=== PATIENT | male | born 1980 | race Caucasian/White ===

== ENCOUNTER 2017-05-27 13:21 | Emergency (ER) | payer SELFPAY ==
[2017-05-27 13:48] VITALS: BP 107/68
[2017-05-27] MEDS ORDERED: CIPROFLOXACIN HCL/DEXAMETH OTIC DROP 7.5 ML AS ONE (14:20)
--- NOTE | 2017-05-27 14:26 | ER Document Report ---
HPI - HPI Pain Level: 3 Notes: Patient is a 37-year-old male with no significant past medical history who presents to the ED complaining of right ear pain 3 days. Patient states that his ear feels like it is swollen. He has not had any other recent illness. He is eating and drinking without difficulties. The pain does not radiate. He has been using some [id number] meds with minimal relief. No other concerns or complaints at this time. Denies any headache, fever, head injury, neck pain, URI, sore throat, chest pain, palpitations, syncope, cough, shortness of breath, wheeze, dyspnea, abdominal pain, nausea/vomiting/diarrhea, urinary retention, dysuria, hematuria, or rash. - ROS Systems Reviewed and Negative: Yes All other systems reviewed and negative - EENT EENT: REPORTS: Ear Pain - R Past Medical History - Social History Smoking Status: Current Every Day Smoker Chew tobacco use (# tins/day): No Frequency of alcohol use: Rare Drug Abuse: Marijuana Family History: Reviewed & Not Pertinent Patient has suicidal ideation: No Patient has homicidal ideation: No Renal/ Medical History: Denies: Hx Peritoneal Dialysis Past Surgical History: Reports: Hx Appendectomy, Hx Orthopedic Surgery - B ankle Vertical Provider Document - CONSTITUTIONAL Agree With Documented VS: Yes Notes: PHYSICAL EXAMINATION: GENERAL: Well-appearing, well-nourished and in no acute distress. A&Ox4. Answers questions appropriately. Moves comfortably w/o notable distress HEAD: Atraumatic, normocephalic. EYES: Pupils equal round and reactive to light, extraocular movements intact, sclera anicteric, conjunctiva are normal. ENT: Lt EAC/TM wnl. Rt EAC swollen and tender. No mastoid tenderness. Rt TM unable to be visualized. Nares patent and without discharge. oropharynx mild erythema without exudates. No tonsilar hypertrophy without erythema or exudate. No palatine shift. Uvula midline. No tongue protrusion. No drooling , hoarseness, or airway compromise. Moist mucous membranes. No sinus tenderness. NECK: Normal range of motion, supple without lymphadenopathy. No rigidity/ meningismus. LUNGS: Breath sounds clear to auscultation bilaterally and equal. No wheezes rales or rhonchi. No retractions HEART: Regular rate and rhythm without murmurs, rubs, gallops NEUROLOGICAL: Normal speech, normal gait. Normal sensory, motor exams PSYCH: Normal mood, normal affect. SKIN: Warm, Dry, normal turgor, no rashes or lesions noted. Course - Re-evaluation Re-evalutation: 05/27/17 14:40 Patient is an afebrile, well-hydrated, 37-year-old male who presents to the ED with acute otitis externa of the right ear. Vitals are acceptable. PE is otherwise unremarkable. Ear wick was placed today with Ciprodex. Patient tolerated procedure well without any comp locations. No other labs or imaging warranted at this time based on H&P. Low suspicion for any sepsis, meningitis, severe dehydration, respiratory compromise, mastoiditis, or other systemic emergent condition at this time. Patient is aware that condition can change from initial presentation and he needs to monitor symptoms closely and seek medical attention with any acute changes. Conservative measures otherwise for symptoms. Recheck with your PCM in 3-5 days. Consider consult ENT. Return to the ED with any worsening/concerning symptoms otherwise as reviewed discharge. Patient is in agreement. - Vital Signs Vital signs: Temp Pulse Resp BP Pulse Ox 98.3 F 94 18 107/68 100 05/27/17 13:46 05/27/17 13:46 05/27/17 13:46 05/27/17 13:46 05/27/17 13:46 Procedures - Additional Procedures ear wick placement Time performed: 14:40 Notes: 05/27/17 14:40 Ear wick was placed successfully without any complications. Patient tolerated procedure well without any complications. Discharge - Discharge Clinical Impression: Acute otitis externa of right ear Qualifiers: Otitis externa type: unspecified type Qualified Code(s): H60.501 - Unspecified acute noninfective otitis externa, right ear Condition: Stable Disposition: HOME, SELF-CARE Instructions: Using Ear Drops with a Wick ([facility]), Otitis Externa ([facility]) Additional Instructions: Keep the ears clean avoid Q-tips Tylenol/ibuprofen as needed Recheck with your PCM in 3-5 days Consider consult with ENT Return to the ED with any worsening symptoms and/or development of fever, headache, chest pain, palpitations, syncope, shortness of breath, trouble breathing, abdominal pain, n/v/d, or other worsening symptoms that are concerning to you. Prescriptions: Ciprofloxacin HCl/Dexameth [Ciprodex Otic Suspension 7.5 ml Bottle] 4 drop OT BID #1 bottle Referrals: FRANK JAIN DO [ASSOCIATE] - Follow up as needed
== END 2017-05-27 14:48 | disposition home or self-care (01) ==
LOC: ER 13:21
DX: H60.501 Unspecified acute noninfective otitis externa, right ear (principal); F17.200 Nicotine dependence, unspecified, uncomplicated
CPT/HCPCS: 99282; J3490

== ENCOUNTER 2018-08-27 16:17 | Inpatient (IN) | payer SELFPAY ==
--- NOTE | 2018-08-27 16:21 | ER Document Report ---
ED Medical Screen (RME) - General Chief Complaint: S/S of Possible Stroke Stated Complaint: POSSIBLE STROKE Time Seen by Provider: 08/27/18 16:19 Mode of Arrival: Wheelchair Information source: Patient Notes: Patient presents emergency department with chief complaint of sudden onset slurred speech and left arm numbness and weakness that began 30 minutes prior to arrival. Stroke alert activated. Orders placed from lockstitch front maker after quick visual of patient, more thorough assessment will be done at the bedside. I have greeted and performed a rapid initial assessment of this patient. A co mprehensive ED assessment and evaluation of the patient, analysis of test results and completion of the medical decision making process will be conducted by additional ED providers. I have specifically instructed the patient or family members with the patient to immediately return to any nursing staff should anything change in the patient's condition or with their chief complaint. This medical record was dictated with voice recognizing software. There may be grammatical, syntax errors that are unintended. - Related Data Allergies/Adverse Reactions: bee venom protein (honey bee) Allergy (Verified 05/27/17 14:08) naproxen [From Aleve] Allergy (Verified 05/27/17 14:08) Past Medical History Renal/ Medical History: Denies: Hx Peritoneal Dialysis Past Surgical History: Reports: Hx Appendectomy, Hx Orthopedic Surgery - B ankle
--- NOTE | 2018-08-27 16:35 | RADIOLOGY REPORT (SQ) ---
EXAM DESCRIPTION: CT HEAD WITHOUT COMPLETED DATE/TIME: 08/27/2018 4:28 pm REASON FOR STUDY: slurred speech COMPARISON: None. TECHNIQUE: Axial images acquired through the brain without intravenous contrast. Images reviewed wi th bone, brain and subdural windows. Additional sagittal and coronal reconstructions were generated. Images stored on PACS. All CT scanners at this facility use dose modulation, iterative reconstruction, and/or weight based d osing when appropriate to reduce radiation dose to as low as reasonably achievable (ALARA). [facility]: Dose Right [facility]: CareDose [facility]: Dose Right [facility]: Teradose 4D [facility]: [email or web address] RADIATION DOSE: CT Rad equipment meets quality standard of care and radiation dose reduction techniq ues were employed. CTDIvol: 53.2 mGy. DLP: 1124 mGy-cm. mGy. LIMITATIONS: None. FINDINGS: VENTRICLES: Normal size and contour. CEREBRUM: No masses. No hemorrhage. No midline shift. No evidence for acute infarction. Normal gra y/white matter differentiation. No areas of low density in the white matter. CEREBELLUM: No masses. No hemorrhage. No alteration of density. No evidence for acute infarction. EXTRAAXIAL SPACES: No fluid collections. No masses. ORBITS AND GLOBE: No intra- or extraconal masses. Normal contour of globe without masses. CALVARIUM: No fracture. PARANASAL SINUSES: No fluid or mucosal thickening. SOFT TISSUES: No mass or hematoma. OTHER: No other significant finding. IMPRESSION: NORMAL BRAIN CT WITHOUT CONTRAST. EVIDENCE OF ACUTE STROKE: NO. COMMENT: The findings were sent to the Radiology Results Communication Center at 16:30 on 08/27/2018 to be communicated to a licensed caregiver. Quality ID # [id number]: Final reports with documentation of one or more dose reduction techniques (e.g., Au tomated exposure control, adjustment of the mA and/or kV according to patient size, use of iterative reconstruction technique) TECHNICAL DOCUMENTATION: JOB ID: [id number] [employer]- All Rights Reserved Reading location - IP/workstation name: [email or web address]
--- NOTE | 2018-08-27 16:36 | RADIOLOGY REPORT (SQ) ---
EXAM DESCRIPTION: CHEST SINGLE VIEW COMPLETED DATE/TIME: 08/27/2018 4:28 pm REASON FOR STUDY: slurred speech COMPARISON: None. EXAM PARAMETERS: NUMBER OF VIEWS: One view. TECHNIQUE: Single frontal radiographic view of the chest acquired. RADIATION DOSE: NA LIMITATIONS: None. FINDINGS: LUNGS AND PLEURA: No opacities, masses or pneumothorax. No pleural effusion. MEDIASTINUM AND HILAR STRUCTURES: No masses. Contour normal. HEART AND VASCULAR STRUCTURES: Heart normal in size. Normal vasculature. BONES: No acute findings. HARDWARE: None in the chest. OTHER: No other significant finding. IMPRESSION: NO ACUTE RADIOGRAPHIC FINDING IN THE CHEST. TECHNICAL DOCUMENTATION: JOB ID: [id number] [employer]- All Rights Reserved Reading location - IP/workstation name: [email or web address]
[2018-08-27 16:48] LABS: ABSOLUTE BASOPHILS # (AUTO) 0.1 10^3/uL (0.0-0.2); ABSOLUTE EOSINOPHILS # (AUTO) 0.2 10^3/uL (0.0-0.6); ABSOLUTE LYMPHOCYTES (AUTO) 2.5 10^3/uL (0.5-4.7); ABSOLUTE MONOCYTES (AUTO) 0.6 10^3/uL (0.1-1.4); ABSOLUTE NEUT (AUTO) 3.6 10^3/uL (1.7-8.2); BASOPHILS % (AUTO) 1.2 % (0-2); EOSINOPHILS % (AUTO) 2.5 % (0-6); HEMATOCRIT 33.7 % (37.9-51.0); HEMOGLOBIN 11.6 g/dL (13.5-17.0); LYMPHOCYTES % (AUTO) 35.7 % (13-45); MEAN CORPUSCULAR HEMOGLOBIN 31.6 pg (27.0-33.4); MEAN CORPUSCULAR HGB CONC 34.4 g/dL (32.0-36.0); MEAN CORPUSCULAR VOLUME 92 fl (80-97); MONOCYTES % (AUTO) 8.5 % (3-13); PLATELET COUNT 205 10^3/uL (150-450); RED BLOOD COUNT 3.67 10^6/uL (4.35-5.55); RED CELL DISTRIBUTION WIDTH 15.6 % (11.5-14.0); SEGMENTED NEUTROPHILS % (AUTO) 52.1 % (42-78); TOTAL CELLS COUNTED % (AUTO) 100 %; WHITE BLOOD COUNT 6.9 10^3/uL (4.0-10.5)
[2018-08-27 16:57] LABS: INTERNATIONAL RATION (INR) 0.94; PROTHROMBIN TIME 12.6 SEC (11.4-15.4)
[2018-08-27 16:58] LABS: PARTIAL THROMBOPLASTIN TIME 36.1 SEC (23.5-35.8)
[2018-08-27 17:08] LABS: ALANINE AMINOTRANSFERASE 88 U/L (21-72); ALBUMIN 5.1 g/dL (3.5-5.0); ALKALINE PHOSPHATASE 75 U/L (38-126); ANION GAP 13 (5-19); ASPARTATE AMINO TRANSFERASE 238 U/L (17-59); BILIRUBIN,DIRECT 0.3 mg/dL (0.0-0.4); BILIRUBIN,TOTAL 0.4 mg/dL (0.2-1.3); BLOOD UREA NITROGEN 18 mg/dL (7-20); CALCIUM 9.8 mg/dL (8.4-10.2); CARBON DIOXIDE 27 mmol/L (22-30); CHLORIDE 101 mmol/L (98-107); GLUCOSE 94 mg/dL (75-110); POTASSIUM 3.6 mmol/L (3.6-5.0); SODIUM 140.9 mmol/L (137-145); TOTAL PROTEIN 8.5 g/dL (6.3-8.2)
--- NOTE | 2018-08-27 17:16 | ER Document Report ---
ED General - General Chief Complaint: S/S of Possible Stroke Stated Complaint: POSSIBLE STROKE Time Seen by Provider: 08/27/18 16:19 Mode of Arrival: Wheelchair Information source: Patient, Relative Notes: 38-year-old male with hypertension (noncompliant with medication) hypothyroidism (noncompliant with medication) presents with complaint of left hand tingling and numbness that started just prior to arrival while he was driving. Patient states that he had a sudden onset of tingling that was located in his wrist and extended to his fingers. He denies any left arm weakness, slurred speech, difficulty with ambulation. Patient states that he did experience an episode of dizziness along with the hand tingling while driving which resolved prior to exam. Patient is a pack per day smoker, occasionally drinks and denies any illicit drug use. - HPI Onset: Just prior to arrival Onset/Duration: Sudden, Gone Quality of pain: No pain Severity: None Pain Level: Denies Associated symptoms: Other - Paresthesia Exacerbated by: Denies Relieved by: Denies Similar symptoms previously: No Recently seen / treated by doctor: No - Related Data Allergies/Adverse Reactions: bee venom protein (honey bee) Allergy (Verified 08/27/18 16:45) naproxen [From Aleve] Allergy (Verified 08/27/18 16:45) Past Medical History - General Information source: Patient - Social History Smoking Status: Current Every Day Smoker Cigarette use (# per day): Yes - 20 Chew tobacco use (# tins/day): No Smoking Education Provided: Yes - Smoking cessation counseling was provided for 4 minutes at the bedside Frequency of alcohol use: None Drug Abuse: None Lives with: Family Family History: Reviewed & Not Pertinent Patient has suicidal ideation: No Patient has homicidal ideation: No - Past Medical History Cardiac Medical History: Reports: Hx Hypertension Renal/ Medical History: Denies: Hx Peritoneal Dialysis Past Surgical History: Reports: Hx Appendectomy, Hx Orthopedic Surgery - B ankle Review of Systems - Review of Systems Notes: REVIEW OF SYSTEMS: CONSTITUTIONAL : Denies fever, chills, or sweats. Denies recent illness. Denies weight loss, recent hospitalizations. EENT: Denies visual changes, eye pain. Denies sore throat, oral lesions, difficulty swallowing. CARDIOVASCULAR: Denies chest pain. Denies palpitations. Denies lower extremity edema. RESPIRATORY: Denies cough. Denies shortness of breath, wheezing. GASTROINTESTINAL: Denies abdominal pain or distention. Denies nausea, vomiting, or diarrhea. Denies blood in vomitus, stools, or per rectum. Denies black, tarry stools. Denies constipation. GENITOURINARY: Denies difficulty urinating, painful urination, frequency, blood in urine, testicular pain or penile discharge. MUSCULOSKELETAL: Denies back or neck pain or stiffness. Denies joint pain or swelling. SKIN: Denies rash, lesions or sores. HEMATOLOGIC : Denies easy bruising or bleeding. LYMPHATIC: Denies swollen glands. NEUROLOGICAL: Denies confusion or altered mental status. Denies loss of consciousness. + dizziness or lightheadedness. Denies headache. Denies weakness or paralysis. Denies problems difficulty with ambulation, slurred speech. Denies sensory loss, Denies seizures. PSYCHIATRIC: Denies anxiety or stress. Denies depression, suicidal ideation, or Physical Exam - Vital signs Vitals: Pulse Resp BP Pulse Ox 84 20 149/95 H 99 08/27/18 16:32 08/27/18 16:32 08/27/18 16:32 08/27/18 16:32 - Notes Notes: PHYSICAL EXAMINATION: GENERAL: Well-appearing, well-nourished and in no acute distress. HEAD: Atraumatic, normocephalic. EYES: Pupils equal round and reactive to light, extraocular movements intact, sclera anicteric, conjunctiva are normal. ENT: Nares patent, oropharynx clear without exudates. Moist mucous membranes. NECK: Normal range of motion, supple without lymphadenopathy LUNGS: Breath sounds clear to auscultation bilaterally and equal. No wheezes rales or rhonchi. HEART: Regular rate and rhythm without murmurs ABDOMEN: Soft, nontender, nondistended abdomen. No guarding, no rebound. No masses appreciated. Musculoskeletal: Normal range of motion, no pitting or edema. No cyanosis. NEUROLOGICAL: Mental status; alert and oriented x3. Cranial nerves II through XII intact. Sensation intact to sharp/dull differentiation in all extremities. Motor; normal tone. No abnormal movements appreciated. No pronator drift. Strength tested and 5/5 in bilateral wrist flexion/extension, elbow flexion/extension, shoulder abduction, straight leg raise, knee flexion/extension, ankle dorsiflexion/plantar flexion. Patient ambulates with a steady gait. Coordination; no ataxia. Finger to nose and heel to mary testing intact bilaterally.Reflexes; brachial radialis, biceps, and patellar reflexes within normal limits and symmetric bilaterally. Babinski with downgoing toes bilaterally. PSYCH: Normal mood, normal affect. SKIN: Warm, Dry, normal turgor, no rashes or lesions noted. Course - Re-evaluation Re-evalutation: 08/27/18 19:23 Laboratory 08/27/18 08/27/18 08/27/18 14:35 14:35 14:35 WBC 6.9 RBC 3.67 L Hgb 11.6 L Hct 33.7 L MCV 92 MCH 31.6 MCHC 34.4 RDW 15.6 H Plt Count 205 Seg Neutrophils % 52.1 Lymphocytes % 35.7 Monocytes % 8.5 Eosinophils % 2.5 Basophils % 1.2 Absolute Neutrophils 3.6 Absolute Lymphocytes 2.5 Absolute Monocytes 0.6 Absolute Eosinophils 0.2 Absolute Basophils 0.1 PT 12.6 INR 0.94 APTT 36.1 H Sodium 140.9 Potassium 3.6 Chloride 101 Carbon Dioxide 27 Anion Gap 13 BUN 18 Creatinine 1.34 H Est GFR ( Amer) > 60 Est GFR (Non-Af Amer) 59 L Glucose 94 Calcium 9.8 Total Bilirubin 0.4 Direct Bilirubin 0.3 Neonat Total Bilirubin Not Reportable Neonat Direct Bilirubin Not Reportable Neonat Indirect Bili Not Reportable AST 238 H ALT 88 H Alkaline Phosphatase 75 Creatine Kinase 8668 H CK-MB (CK-2) Troponin I Total Protein 8.5 H Albumin 5.1 H TSH Free T4 08/27/18 08/27/18 14:35 14:35 WBC RBC Hgb Hct MCV MCH MCHC RDW Plt Count Seg Neutrophils % Lymphocytes % Monocytes % Eosinophils % Basophils % Absolute Neutrophils Absolute Lymphocytes Absolute Monocytes Absolute Eosinophils Absolute Basophils PT INR APTT Sodium Potassium Chloride Carbon Dioxide Anion Gap BUN Creatinine Est GFR ( Amer) Est GFR (Non-Af Amer) Glucose Calcium Total Bilirubin Direct Bilirubin Neonat Total Bilirubin Neonat Direct Bilirubin Neonat Indirect Bili AST ALT Alkaline Phosphatase Creatine Kinase CK-MB (CK-2) 22.10 H Troponin I < 0.012 Total Protein Albumin TSH 176.00 H Free T4 < 0.07 L Chest X-Ray 08/27/18 16:20 IMPRESSION: NO ACUTE RADIOGRAPHIC FINDING IN THE CHEST. Head CT 08/27/18 16:20 IMPRESSION: NORMAL BRAIN CT WITHOUT CONTRAST. EVIDENCE OF ACUTE STROKE: NO. Head CTA 08/27/18 16:48 IMPRESSION: NO CTA EVIDENCE OF STENOSIS OR ANEURYSM OF THE [place]. Neck CTA 08/27/18 16:48 IMPRESSION: There is no stenosis or significant atherosclerosis of the extracranial carotid or vertebral arteries. The internal carotid arteries are tortuous. Temp Pulse Resp BP Pulse Ox 98.0 F 84 16 122/77 92 08/27/18 16:44 08/27/18 16:32 08/27/18 19:02 08/27/18 19:02 08/27/18 19:02 08/27/18 20:40 38-year-old male presented with concern for stroke after experiencing numbness in his left wrist and hand. Upon arrival NIH was performed and 0. Vital signs reviewed and within normal limits. Patient is alert, awake and has no current complaints except for mild paresthesia of the left hand. He denies any weakness, slurred speech, headache. CBC is without leukocytosis and does show mild anemia. CMP does show elevation in the patient's liver enzymes and a mil dly elevated creatinine of 1.34. Unexpected findings were a CK level of almost 9000. Patient also has significant hypothyroidism. He does admit to being noncompliant with his medications. He has remained stable throughout his ED course. Patient was accepted by the hospitalist for observation on telemetry. - Vital Signs Vital signs: Temp Pulse Resp BP Pulse Ox 98.0 F 84 16 122/77 92 08/27/18 16:44 08/27/18 16:32 08/27/18 19:02 08/27/18 19:02 08/27/18 19:02 - Laboratory Result Diagrams: 08/27/18 14:35 08/27/18 14:35 Laboratory results interpreted by me: 08/27/18 08/27/18 08/27/18 14:35 14:35 14:35 RBC 3.67 L Hgb 11.6 L Hct 33.7 L RDW 15.6 H APTT 36.1 H Creatinine 1.34 H Est GFR (Non-Af Amer) 59 L AST 238 H ALT 88 H Creatine Kinase 8668 H CK-MB (CK-2) Total Protein 8.5 H Albumin 5.1 H TSH Free T4 08/27/18 08/27/18 14:35 14:35 RBC Hgb Hct RDW APTT Creatinine Est GFR (Non-Af Amer) AST ALT Creatine Kinase CK-MB (CK-2) 22.10 H Total Protein Albumin TSH 176.00 H Free T4 < 0.07 L - Diagnostic Test Radiology reviewed: Image reviewed, Reports reviewed - EKG Interpretation by Me EKG shows normal: Sinus rhythm Rate: Normal Rhythm: NSR When compared to previous EKG there are: Previous EKG unavailable Discharge - Discharge Clinical Impression: Paresthesias in left hand, Tobacco dependence, Elevated liver enzymes Rhabdomyolysis Qualifiers: Rhabdomyolysis type: non-traumatic Qualified Code(s): M62.82 - Rhabdomyolysis Hypothyroidism Qualifiers: Hypothyroidism type: unspecified Qualified Code(s): E03.9 - Hypothyroidism, unspecified Condition: Stable Disposition: ADMITTED OBSERVATION Admitting Provider: Kathryn (Hospitalist) Unit Admitted: Telemetry ED NIH Stroke Scale - NIH Stroke Scale *: 1. NIH scale should be completed with appropriate accompanying assessment tools. *: 2. The NIH should reflect what the patient is capable of doing and should not be coached by the clinician. 1a. Level of Consciousness: 0=Alert;keenly responsive -: 1=Drowsy -: 2=Obtunded -: 3=Coma/unresponsive or reflex to noxious stimuli. 1a. Responses: 0 1b. Orientation Questions: a. What month is it? -: b. How old are you? -: 0=Answers both questions correctly. -: 1=Answers one question correctly or patient is intubated or has orotracheal trauma. -: 2=Answers neither question correctly. 1b. Responses: 0 1c. Response to commands: a. Open and close eyes? -: b. Stand Grinder and release hand? -: Credit is given despite weakness. Demonstration of task is permitted. Substitute command if hands cannot be used. -: 0=Performs both tasks correctly -: 1=Performs one task correctly -: 2=Performs neither task correctly 1c. Responses: 0 2. Gaze: Establish eye contact and instruct patient to "Follow my finger" -: 0=Normal -: 1=Partial gaze palsy. Gaze is abnormal in one or both eyes, but where forced deviation or total gaze paresis is not present. -: 2=Forced deviation or total gaze paresis. 2. Responses: 0 3. Visual Martins: Sees fingers in all four quadrants. -: 0=No visual loss. -: 1=Partial hemianopsia. -: 2=Complete hemianopsia. -: 3=Bilateral hemianopsia (including Cortical blindness) 3. Responses: 0 4. Facial Movement: Instruct patient to: -: a. Show me your teeth -: b. Raise your eyebrows -: c. Close your eyes -: d. Smile -: 0=Normal symmetrical movement -: 1=Minor paralysis (flattened nasolabial fold, asymmetry on smiling). -: 2=Partial paralysis (total or near total paralysis of lower face). -: 3=Complete paralysis of upper and lower face 4. Responses: 0 5. Motor functions (left arm): Alternate sides and extend each arm with palms d own (90 degrees if sitting or 45 degrees for supine). -: 0=No drift;limb holds for full 10 seconds. -: 1=Drift; limb holds but drifts down before full 10 seconds, but does not hit bed. -: 2=Some effort against gravity; limb cannot get to or maintain position. -: 3=No effort against gravity; limb falls. -: 4=No movement. -: UN=Amputation, joint fusion, explain in comments. 5. Responses (left arm): 0 5. Motor Functions (right arm): Alternate sides and extend each arm with palms down (90 degrees if sitting or 45 degrees for supine). -: 0=No drift;limb holds for full 10 seconds. -: 1=Drift; limb holds but drifts down before full 10 seconds, but does not hit bed. -: 2=Some effort against gravity; limb cannot get to or maintain position. -: 3=No effort against gravity; limb falls. -: 4=No movement. -: UN=Amputation, joint fusion, explain in comments. 5. Responses (right arm): 0 6. Motor Functions (left leg): With patient lying supine, alternate sides and extend each leg (30 degrees always while supine). -: 0=No drift, leg holds position for full 5 seconds -: 1=Drift; leg falls before full 5 seconds but does not hit bed. -: 2=Some effort against gravity, leg falls to bed but some effort against gravity. -: 3=No effort against gravity, leg falls to bed immediately. -: 4=No movement. -: UN=Amputation, joint fusion; explain in comments. 6. Responses (left leg): 0 6. Motor Functions (right leg): With patient lying supine, alternate sides and extend each leg (30 degrees always while supine). -: 0=No drift, leg holds position for full 5 seconds -: 1=Drift; leg falls before full 5 seconds but does not hit bed. -: 2=Some effort against gravity, leg falls to bed but some effort against gravity. -: 3=No effort against gravity, leg falls to bed immediately. -: 4=No movement. -: UN=Amputation, joint fusion; explain in comments. 6. Responses (right leg): 0 7. Limb Ataxia: With eyes open instruct patient to: -: a. "Touch your finger to your nose". -: b. "Touch your heel to your mary" -: 0=Absent -: 1=Present in one limb. -: 2=Present in two limbs. -: UN=Amputation or joint fusion; explain in comments. 7. Responses: 0 8. Sensory: Test sensation using pinprick or noxious stimuli. Test as many body parts as possible. -: 0=Normal;no sensory loss -: 1=Mile to moderate sensory loss (patient feels pin prick but is less sharp on affected side). -: 2=Severe or total sensory loss. 8. Responses: 0 9. Best Language: Instruct patient to: -: a. "Describe what you see in this picture." -: b. "Name the items in this picture." -: c. "Read these sentences." -: 0=No aphasia, normal -: 1=Mild to moderate aphasia. -: 2=Severe aphasia -: 3=Mute, global aphasia, no usable speech or auditory comprehension. 9. Responses: 0 10. Articulation, Dysarthia: Instruct patient to: -: "Read these words" or "Repeat these words" -: 0=Normal -: 1=Mild to moderate; patient may slur some words but can be understood without difficulty. -: 2=Severe; patients speech so slurred as to be unintelligible in the absence of dysphasia. -: UN=Intubated or other physical barrier, explain in comments. 10. Responses: 0 11. Extinction or inattention: 0=No abnormality -: 1= Visual, tactile, auditory, spatial, or personal inattention or extinction to bilateral simulation in one or the sensory modalities. -: 2=Profound brenda-inattention or brenda-inattention to more than one modality; does not recognize own hand. 11. Responses: 0 Total Score: 0
[2018-08-27 17:19] LABS: TROPONIN I < 0.012 ng/mL
[2018-08-27 17:31] LABS: CREATINE KINASE 8668 U/L (55-170)
--- NOTE | 2018-08-27 17:41 | RADIOLOGY REPORT (SQ) ---
EXAM DESCRIPTION: CTA HEAD COMPLETED DATE/TIME: 08/27/2018 5:27 pm REASON FOR STUDY: left arm weakness COMPARISON: None. TECHNIQUE: Post IV contrast scanning, thin section axial imaging through the brain to evaluate the a rterial structures. Source and MIP images are saved and reviewed on PACS. Advanced 3D imaging as volume-rendering, MIPs, SSD performed? No All CT scanners at this facility use dose modulation, iterative reconstruction, and/or weight based d osing when appropriate to reduce radiation dose to as low as reasonably achievable (ALARA). [facility]: Dose Right [facility]: CareDose [facility]: Dose Right [facility]: Teradose 4D [facility]: [employer] CONTRAST TYPE AND DOSE: 70 mL Omnipaque 350- low osmolar. RENAL FUNCTION: BUN 18 creatinine 0.34 LIMITATIONS: None. FINDINGS: [place]: The anterior, middle, posterior cerebral arteries are all patent. No ev idence of aneurysm or focal stenosis. POSTERIOR CIRCULATION: The distal vertebral arteries are patent as is the basilar artery. No aneurysm . BRAIN: No gross enhancing lesions as visualized. The superior cerebral hemispheres are not included in the field of view. BONES: Intact as visualized. SINUSES: No fluid or mucosal thickening. OTHER: No other significant finding. IMPRESSION: NO CTA EVIDENCE OF STENOSIS OR ANEURYSM OF THE [place]. TECHNICAL DOCUMENTATION: JOB ID: [id number] Quality ID # [id number]: Final reports with documentation of one or more dose reduction techniques (e.g., Au tomated exposure control, adjustment of the mA and/or kV according to patient size, use of iterative reconstruction technique) 2010 [email or web address]- All Rights Reserved Reading location - IP/workstation name: [email or web address]
--- NOTE | 2018-08-27 17:43 | RADIOLOGY REPORT (SQ) ---
EXAM DESCRIPTION: CTA NECK COMPLETED DATE/TIME: 08/27/2018 5:26 pm REASON FOR STUDY: left arm weakness COMPARISON: None. TECHNIQUE: Axial dynamic scanning technique with dynamic contrast enhancement through the extra-crane assembler nial carotid and vertebral arteries. Multiplanar reconstruction. 3-D MIPS and Volume-rendered imag es acquired at the workstation and saved to PACS. Images are reviewed in soft tissue, bone, lung w indows. All CT scanners at this facility use dose modulation, iterative reconstruction, and/or weight based d osing when appropriate to reduce radiation dose to as low as reasonably achievable (ALARA). [facility]: Dose Right [facility]: CareDose [facility]: Dose Right [facility]: Teradose 4D [facility]: [employer] CONTRAST TYPE AND DOSE: contrast/concentration: Isovue 350.00 mg/ml; Total Contrast Delivered: 70.0 ml; Total Saline Delivered: 75.0 ml RENAL FUNCTION: BUN 18 creatinine 0.34 LIMITATIONS: None. FINDINGS: AORTIC ARCH: Normal three-vessel origin. Bilateral subclavian arteries are patent. No d issection. RIGHT CAROTIDS: Patent common, internal and external carotid arteries without suggestion of significa nt stenosis or irregular plaque. No dissection. Tortuous ICA RIGHT VERTEBRAL: Patent. No dissection. LEFT CAROTIDS: Patent common, internal and external carotid arteries without suggestion of significan t stenosis or irregular plaque. No dissection. Tortuous ICA LEFT VERTEBRAL: Patent. No dissection. OTHER: No other significant finding. OTHER: 3-D reconstructions confirm findings. IMPRESSION: There is no stenosis or significant atherosclerosis of the extracranial carotid or verte bral arteries. The internal carotid arteries are tortuous. COMMENT: Quality ID #[id number]: Measurements of distal internal carotid diameter were used as the denomina tor for stenosis measurement. TECHNICAL DOCUMENTATION: JOB ID: [id number] Quality ID # [id number]: Final reports with documentation of one or more dose reduction techniques (e.g., Au tomated exposure control, adjustment of the mA and/or kV according to patient size, use of iterative reconstruction technique) 2010 [employer]- All Rights Reserved Reading location - IP/workstation name: [email or web address]
[2018-08-27 17:44] LABS: FREE T4 (FREE THYROXINE) < 0.07 ng/dL (0.78-2.19)
[2018-08-27] MEDS ORDERED: NORMAL SALINE 1000 ML 1,000 ML IV ONE (18:03)
[2018-08-27] MEDS ORDERED: ONDANSETRON HCL INJ/PF 4 MG/2 ML SDV IV PRN (18:50)
[2018-08-27] MEDS ORDERED: MAG HYDROX/AL HYDROX/SIMETH SUSP 30 ML UDCUP PO PRN (18:50)
[2018-08-27] MEDS ORDERED: ACETAMINOPHEN 325 MG TABLET PO PRN (18:50)
[2018-08-27] MEDS ORDERED: IPRATROPIUM/ALBUTEROL 0.5-2.5 MG/3 ML AMPUL NEB PRN (18:50)
[2018-08-27] MEDS ORDERED: MAGNESIUM HYDROXIDE SUSP 30 ML UDCUP PO PRN (18:50)
[2018-08-27] MEDS ORDERED: LORAZEPAM 1 MG TABLET PO PRN (19:00)
--- NOTE | 2018-08-27 19:06 | PDOC H&P ---
History of Present Illness Admission Date/PCP: 08/27/18 18:25 Patient complains of: Left hand weakness History of Present Illness: DEX GUERRA is a 38 year old male with a past medical history of hypertension and hypothyroidism, not currently on medications due to financial and insurance barriers, who presented to the emergency department today with a complaint of less than 30 minutes of hand numbness and tingling that has improved since his arrival. Evaluation in the emergency department revealed hypertension, mild anemia with a hemoglobin of 11.6, creatinine of 1.34 (unknown baseline), mildly elevated LFTs, creatinine kinase 8600 with an elevated CK-MB to 22.10, and TSH of 176. Head CT, head CTA, and neck CTA all benign; negative for acute CVA. He is referred to the hospitalist service for admission and management of the above-stated complaints and findings. Past Medical History Cardiac Medical History: Reports: Hypertension Pulmonary Medical History: Reports: None EENT Medical History: Reports: None Neurological Medical History: Reports: None Endocrine Medical History: Reports: Hypothyroidism, Obesity Renal/ Medical History: Reports: None Malignancy Medical History: Reports: None GI Medical History: Reports: None Musculoskeltal Medical History: Reports: None Skin Medical History: Reports: None Psychiatric Medical History: Reports: Tobacco Dependency Traumatic Medical History: Reports: None Hematology: Reports: None Infectious Medical History: Reports: None Past Surgical History Past Surgical History: Reports: Appendectomy, Orthopedic Surgery - B ankle Social History Information Source: Patient Lives with: Family Smoking Status: Current Every Day Smoker Frequency of Alcohol Use: Heavy Hx Recreational Drug Use: Yes Drugs: Marijuana Hx Prescription Drug Abuse: No - Advance Directive Resuscitation Status: Full Code Surrogate healthcare decision maker:: The patient's parents Family History Family History: CAD, Hyperlipidemia, Hypertension, Malignancy, Thyroid Disfunction Parental Family History Reviewed: Yes Children Family History Reviewed: NA Sibling(s) Family History Reviewed.: Yes Medication/Allergy Home Medications: Ciprofloxacin HCl/Dexameth [Ciprodex Otic Suspension 7.5 ml Bottle] 4 drop OT BID #1 bottle 05/27/17 Levothyroxine Sodium [Synthroid] 05/27/17 [place]-3 Fatty Acids/Fish Oil [Fish Oil 1,000 mg Capsule] 05/27/17 Allergies/Adverse Reactions: bee venom protein (honey bee) Allergy (Verified 08/27/18 16:45) naproxen [From Aleve] Allergy (Verified 08/27/18 16:45) Review of Systems Constitutional: PRESENT: weakness. ABSENT: chills, fever(s), headache(s), weight gain, weight loss Eyes: PRESENT: visual disturbances Ears: ABSENT: hearing changes Cardiovascular: ABSENT: chest pain, dyspnea on exertion, edema, orthropnea, palpitations Respiratory: ABSENT: cough, hemoptysis Gastrointestinal: ABSENT: abdominal pain, constipation, diarrhea, hematemesis, hematochezia, nausea, vomiting Genitourinary: ABSENT: dysuria, hematuria Musculoskeletal: ABSENT: joint swelling Integumentary: ABSENT: rash, wounds Neurological: PRESENT: focal weakness, paresthesias. ABSENT: abnormal gait, abn ormal speech, confusion, dizziness, syncope Psychiatric: ABSENT: anxiety, depression, homidical ideation, suicidal ideation Endocrine: ABSENT: cold intolerance, heat intolerance, polydipsia, polyuria Hematologic/Lymphatic: ABSENT: easy bleeding, easy bruising Physical Exam Vital Signs: Temp Pulse Resp BP Pulse Ox 98.0 F 84 15 149/95 H 97 08/27/18 16:44 08/27/18 16:32 08/27/18 16:35 08/27/18 16:34 08/27/18 16:35 Intake & Output 08/26/18 08/27/18 08/28/18 06:59 06:59 06:59 Weight 102 kg General appearance: PRESENT: no acute distress, cooperative, morbidly obese, well-developed, well-nourished Head exam: PRESENT: atraumatic, normocephalic Eye exam: PRESENT: conjunctival injection - Purulent drainage bilateral eyes, EOMI, PERRLA. ABSENT: scleral icterus Ear exam: PRESENT: normal external ear exam Mouth exam: PRESENT: moist, tongue midline Teeth exam: PRESENT: poor dentation Neck exam: ABSENT: carotid bruit, JVD, lymphadenopathy, thyromegaly Respiratory exam: PRESENT: clear to auscultation ra, symmetrical, unlabored. ABSENT: rales, rhonchi, wheezes Cardiovascular exam: PRESENT: RRR, +S1, +S2. ABSENT: diastolic murmur, rubs, systolic murmur Pulses: PRESENT: normal dorsalis pedis pul Vascular exam: PRESENT: normal capillary refill GI/Abdominal exam: PRESENT: normal bowel sounds, soft. ABSENT: distended, guarding, mass, organolmegaly, rebound, tenderness Rectal exam: PRESENT: deferred Extremities exam: PRESENT: full ROM. ABSENT: calf tenderness, clubbing, pedal edema Neurological exam: PRESENT: alert, awake, oriented to person, oriented to place, oriented to time, oriented to situation, CN II-XII grossly intact. ABSENT: motor sensory deficit Psychiatric exam: PRESENT: normal mood, unusual affect. ABSENT: homicidal ideation, suicidal ideation Skin exam: PRESENT: dry, intact, warm. ABSENT: cyanosis, rash Results Laboratory Results: 08/27/18 14:35 08/27/18 14:35 08/27/18 08/27/18 08/27/18 14:35 14:35 14:35 WBC 6.9 RBC 3.67 L Hgb 11.6 L Hct 33.7 L MCV 92 MCH 31.6 MCHC 34.4 RDW 15.6 H Plt Count 205 Seg Neutrophils % 52.1 Lymphocytes % 35.7 Monocytes % 8.5 Eosinophils % 2.5 Basophils % 1.2 Absolute Neutrophils 3.6 Absolute Lymphocytes 2.5 Absolute Monocytes 0.6 Absolute Eosinophils 0.2 Absolute Basophils 0.1 Sodium 140.9 Potassium 3.6 Chloride 101 Carbon Dioxide 27 Anion Gap 13 BUN 18 Creatinine 1.34 H Est GFR ( Amer) > 60 Est GFR (Non-Af Amer) 59 L Glucose 94 Calcium 9.8 Total Bilirubin 0.4 AST 238 H ALT 88 H Alkaline Phosphatase 75 Total Protein 8.5 H Albumin 5.1 H TSH 176.00 H Free T4 < 0.07 L 08/27/18 08/27/18 14:35 14:35 Creatine Kinase 8668 H CK-MB (CK-2) 22.10 H Troponin I < 0.012 Impressions: Chest X-Ray 08/27/18 16:20 IMPRESSION: NO ACUTE RADIOGRAPHIC FINDING IN THE CHEST. Head CT 08/27/18 16:20 IMPRESSION: NORMAL BRAIN CT WITHOUT CONTRAST. EVIDENCE OF ACUTE STROKE: NO. Head CTA 08/27/18 16:48 IMPRESSION: NO CTA EVIDENCE OF STENOSIS OR ANEURYSM OF THE [place]. Neck CTA 08/27/18 16:48 IMPRESSION: There is no stenosis or significant atherosclerosis of the extracranial carotid or vertebral arteries. The internal carotid arteries are tortuous. Assessment and Plan - Diagnosis (1) Rhabdomyolysis Qualifiers: Rhabdomyolysis type: non-traumatic Qualified Code(s): M62.82 - Rhabdomyolysis Is this a current diagnosis for this admission?: Yes Plan: Patient is admitted with creatinine of 1.36, creatinine kinase of 8000, mildly elevated LFTs. 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 He reports left hand paresthesias and cramping. No nausea or vomiting. Patient is admitted to the medical floor and continuous cardiac telemetry. We will provide generous IV fluids. Encourage p.o. fluids. Monitor chemistries and CK in the morning. (2) Conjunctivitis Qualifiers: Conjunctivitis type: acute Acute conjunctivitis type: unspecified Laterality: bilateral Qualified Code(s): H10.33 - Unspecified acute conjunctivitis, bilateral Is this a current diagnosis for this admission?: Yes Plan: Erythromycin ointment. (3) Hypothyroidism Qualifiers: Hypothyroidism type: unspecified Qualified Code(s): E03.9 - Hypothyroidism, unspecified Is this a current diagnosis for this admission?: Yes Plan: TSH 176, Free T4 <0.07 Start levothyroxine 150 mcg (1.6 mcg/kg/day) (4) Hypertension Is this a current diagnosis for this admission?: Yes Plan: Patient endorses a history of hypertension; not on hypertensive medications. Blood pressure elevated 149/95. Start losartan 25 mg daily. Cardiac diet. (5) Paresthesias in left hand Is this a current diagnosis for this admission?: Yes Plan: Secondary to rhabdomyolysis and possibly hypothyroidism. Management as above. (6) Tobacco dependence Is this a current diagnosis for this admission?: Yes Plan: Smoking cessation is encouraged. Nicotine or placement therapies are provided. - Time Time Spent with patient: 35 or more minutes Medications reviewed and adjusted accordingly: Yes Anticipated discharge: Home Within: within 24 hours
[2018-08-27] MEDS: LOSARTAN POTASSIUM 25 MG TABLET PO SCH (20:55)
[2018-08-27] MEDS: HEPARIN SOD (PORCINE) 5,000 UNIT/ML 1 ML SYRINGE SUBCUT SCH (22:04)
[2018-08-27] MEDS: FAMOTIDINE 20 MG TABLET PO SCH (22:05)
[2018-08-27] MEDS: NORMAL SALINE 1000 ML 1,000 ML IV PRN (22:11)
[2018-08-28] MEDS: ERYTHROMYCIN 0.5% OPH OINTMENT 3.5 GM TUBE OU SCH ×5 (04:00→23:01)
[2018-08-28 05:23] LABS: HEMOGLOBIN 11.4 g/dL (13.5-17.0); MEAN CORPUSCULAR HEMOGLOBIN 31.6 pg (27.0-33.4); MEAN CORPUSCULAR HGB CONC 34.5 g/dL (32.0-36.0); MEAN CORPUSCULAR VOLUME 92 fl (80-97); PLATELET COUNT 179 10^3/uL (150-450); RED CELL DISTRIBUTION WIDTH 15.4 % (11.5-14.0); WHITE BLOOD COUNT 6.3 10^3/uL (4.0-10.5)
[2018-08-28 05:41] LABS: ALANINE AMINOTRANSFERASE 67 U/L (21-72); ALBUMIN 3.9 g/dL (3.5-5.0); ALKALINE PHOSPHATASE 49 U/L (38-126); ANION GAP 6 (5-19); ASPARTATE AMINO TRANSFERASE 168 U/L (17-59); BILIRUBIN,DIRECT 0.2 mg/dL (0.0-0.4); BILIRUBIN,TOTAL 0.3 mg/dL (0.2-1.3); BLOOD UREA NITROGEN 13 mg/dL (7-20); CALCIUM 8.4 mg/dL (8.4-10.2); CARBON DIOXIDE 27 mmol/L (22-30); CHLORIDE 106 mmol/L (98-107); GLUCOSE 79 mg/dL (75-110); POTASSIUM 3.7 mmol/L (3.6-5.0); SODIUM 138.5 mmol/L (137-145); TOTAL PROTEIN 6.8 g/dL (6.3-8.2)
[2018-08-28 06:02] LABS: CREATINE KINASE 5882 U/L (55-170)
[2018-08-28] MEDS: LEVOTHYROXINE SODIUM 0.15 MG TABLET PO SCH (06:58)
[2018-08-28] MEDS: HEPARIN SOD (PORCINE) 5,000 UNIT/ML 1 ML SYRINGE SUBCUT SCH ×3 (06:58→21:13)
[2018-08-28] MEDS: NORMAL SALINE 1000 ML 1,000 ML IV PRN ×2 (06:59→20:15)
[2018-08-28] MEDS: LOSARTAN POTASSIUM 25 MG TABLET PO SCH (11:14)
[2018-08-28] MEDS: DOCUSATE SODIUM 100 MG CAPSULE PO SCH (11:14)
[2018-08-28] MEDS: NICOTINE 21 MG/24 HR PATCH.TD24 TD SCH (11:15)
[2018-08-28] MEDS: FAMOTIDINE 20 MG TABLET PO SCH ×2 (11:16→21:13)
--- NOTE | 2018-08-28 18:11 | Progress Note Acknowledgement ---
Progress Note Acknowledgement Progess Note Acknowledgement: I, the undersigned member of the medical staff with appropriate privileges and with supervisory authority over Lisa Moreno, a [facility] practice allied health professional, acknowledge that I have reviewed the progress notes entered on this patient, and in my professional judgment believe that the assessment made and/or any care evidenced was appropriate
--- NOTE | 2018-08-28 18:14 | PDOC PROGRESS REPORT ---
Subjective Progress Note for:: 08/28/18 Reason For Visit: RHABDOMYOLYSIS Physical Exam Vital Signs: Temp Pulse Resp BP Pulse Ox 97.4 F 49 L 18 117/70 97 08/28/18 11:12 08/28/18 14:00 08/28/18 11:12 08/28/18 11:12 08/28/18 11:12 Intake & Output 08/27/18 08/28/18 08/29/18 06:59 06:59 06:59 Intake Total 1999 Balance 1999 Weight 101.6 kg General appearance: PRESENT: no acute distress, cooperative, morbidly obese, well-developed, well-nourished Head exam: PRESENT: atraumatic, normocephalic Eye exam: PRESENT: conjunctival injection - Improved. Decreased purulent drainage bilateral eyes, EOMI, PERRLA. ABSENT: scleral icterus Ear exam: PRESENT: normal external ear exam Mouth exam: PRESENT: moist, tongue midline Teeth exam: PRESENT: poor dentation Neck exam: ABSENT: carotid bruit, JVD, lymphadenopathy, thyromegaly Respiratory exam: PRESENT: clear to auscultation ra, symmetrical, unlabored. ABSENT: rales, rhonchi, wheezes Cardiovascular exam: PRESENT: RRR, +S1, +S2. ABSENT: diastolic murmur, rubs, systolic murmur Pulses: PRESENT: normal dorsalis pedis pul Vascular exam: PRESENT: normal capillary refill GI/Abdominal exam: PRESENT: normal bowel sounds, soft. ABSENT: distended, guarding, mass, organolmegaly, rebound, tenderness Rectal exam: PRESENT: deferred Extremities exam: PRESENT: full ROM. ABSENT: calf tenderness, clubbing, pedal edema Neurological exam: PRESENT: alert, awake, oriented to person, oriented to place, oriented to time, oriented to situation, CN II-XII grossly intact. ABSENT: motor sensory deficit Psychiatric exam: PRESENT: appropriate affect, normal mood. ABSENT: homicidal ideation, suicidal ideation Skin exam: PRESENT: dry, intact, warm. ABSENT: cyanosis, rash Results Laboratory Results: 08/28/18 04:46 08/28/18 04:46 08/27/18 08/28/18 08/28/18 14:35 04:46 04:46 WBC 6.3 RBC 3.60 L Hgb 11.4 L Hct 33.0 L MCV 92 MCH 31.6 MCHC 34.5 RDW 15.4 H Plt Count 179 Sodium 138.5 Potassium 3.7 Chloride 106 Carbon Dioxide 27 Anion Gap 6 BUN 13 Creatinine 1.19 Est GFR ( Amer) > 60 Est GFR (Non-Af Amer) > 60 Glucose 79 Calcium 8.4 Total Bilirubin 0.3 AST 168 H ALT 67 Alkaline Phosphatase 49 Total Protein 6.8 Albumin 3.9 TSH 176.00 H 08/27/18 08/27/18 08/28/18 14:35 14:35 04:46 Creatine Kinase 8668 H 5882 H CK-MB (CK-2) 22.10 H Troponin I < 0.012 Impressions: Chest X-Ray 08/27/18 16:20 IMPRESSION: NO ACUTE RADIOGRAPHIC FINDING IN THE CHEST. Head CT 08/27/18 16:20 IMPRESSION: NORMAL BRAIN CT WITHOUT CONTRAST. EVIDENCE OF ACUTE STROKE: NO. Head CTA 08/27/18 16:48 IMPRESSION: NO CTA EVIDENCE OF STENOSIS OR ANEURYSM OF THE [place]. Neck CTA 08/27/18 16:48 IMPRESSION: There is no stenosis or significant atherosclerosis of the extracranial carotid or vertebral arteries. The internal carotid arteries are tortuous. Assessment and Plan - Diagnosis (1) Rhabdomyolysis Qualifiers: Rhabdomyolysis type: non-traumatic Qualified Code(s): M62.82 - Rhabdomyolysis Is this a current diagnosis for this admission?: Yes Plan: Improved; CK trending down, Cr/BUN nml, LFTs improved Patient is admitted with creatinine of 1.36, creatinine kinase of 8000, mildly elevated LFTs. 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 Patient is admitted to the medical floor and continuous cardiac telemetry. Continue generous IV fluids. Encourage p.o. fluids. Monitor chemistries and CK in the morning. (2) Conjunctivitis Qualifiers: Conjunctivitis type: acute Acute conjunctivitis type: unspecified Latera lity: bilateral Qualified Code(s): H10.33 - Unspecified acute conjunctivitis, bilateral Is this a current diagnosis for this admission?: Yes Plan: Improved with Erythromycin ointment; Day #2 (3) Hypothyroidism Qualifiers: Hypothyroidism type: unspecified Qualified Code(s): E03.9 - Hypothyroidism, unspecified Is this a current diagnosis for this admission?: Yes Plan: TSH 176, Free T4 <0.07 Start levothyroxine 150 mcg (1.6 mcg/kg/day) Recommend outpatient endocrinology follow up. (4) Hypertension Is this a current diagnosis for this admission?: Yes Plan: Improved w/ start of Losartan Patient endorses a history of hypertension; not on hypertensive medications. Start losartan 25 mg daily. Cardiac diet. (5) Paresthesias in left hand Is this a current diagnosis for this admission?: Yes Plan: Resolved per patient. Secondary to rhabdomyolysis and possibly hypothyroidism. Management as above. (6) Tobacco dependence Is this a current diagnosis for this admission?: Yes Plan: Smoking cessation is encouraged. Nicotine or placement therapies are provided. - Time Time Spent with patient: 15-24 minutes Medications reviewed and adjusted accordingly: Yes Anticipated discharge: Home Within: within 24 hours
--- NOTE | 2018-08-28 19:25 | EKG REPORT ---
SEVERITY:- NORMAL ECG - SINUS RHYTHM : Confirmed by: Nomi Hernandez 28-Aug-2018 19:24:08
[2018-08-29] MEDS: NORMAL SALINE 1000 ML 1,000 ML IV PRN ×2 (01:20→07:40)
[2018-08-29] MEDS: HEPARIN SOD (PORCINE) 5,000 UNIT/ML 1 ML SYRINGE SUBCUT SCH ×3 (05:28→21:15)
[2018-08-29] MEDS: LEVOTHYROXINE SODIUM 0.15 MG TABLET PO SCH (05:28)
[2018-08-29] MEDS: ERYTHROMYCIN 0.5% OPH OINTMENT 3.5 GM TUBE OU SCH ×4 (05:31→23:24)
[2018-08-29 06:48] LABS: ALANINE AMINOTRANSFERASE 54 U/L (21-72); ALBUMIN 3.4 g/dL (3.5-5.0); ALKALINE PHOSPHATASE 50 U/L (38-126); ANION GAP 6 (5-19); ASPARTATE AMINO TRANSFERASE 116 U/L (17-59); BILIRUBIN,DIRECT 0.2 mg/dL (0.0-0.4); BILIRUBIN,TOTAL 0.3 mg/dL (0.2-1.3); BLOOD UREA NITROGEN 12 mg/dL (7-20); CALCIUM 8.6 mg/dL (8.4-10.2); CARBON DIOXIDE 25 mmol/L (22-30); CHLORIDE 107 mmol/L (98-107); GLUCOSE 80 mg/dL (75-110); POTASSIUM 4.1 mmol/L (3.6-5.0); SODIUM 137.7 mmol/L (137-145); TOTAL PROTEIN 6.3 g/dL (6.3-8.2)
[2018-08-29 07:18] LABS: CREATINE KINASE 3942 U/L (55-170)
[2018-08-29] MEDS: FAMOTIDINE 20 MG TABLET PO SCH ×2 (09:25→21:15)
[2018-08-29] MEDS: DOCUSATE SODIUM 100 MG CAPSULE PO SCH (09:25)
[2018-08-29] MEDS: LOSARTAN POTASSIUM 25 MG TABLET PO SCH (09:25)
[2018-08-29] MEDS: NICOTINE 21 MG/24 HR PATCH.TD24 TD SCH (09:26)
[2018-08-29] MEDS ORDERED: NORMAL SALINE 1000 ML 1,000 ML IV PRN (11:05)
--- NOTE | 2018-08-29 16:42 | PDOC PROGRESS REPORT ---
Subjective Progress Note for:: 08/29/18 Subjective:: DEX GUERRA is a 38 year old male with a past medical history of hypertension and hypothyroidism, not currently on medications due to financial and insurance barriers, who was admitted 08/26/2018 for rhabdomyolysis. Patient was seen on morning rounds. He was found resting in bed comfortably on room air eating his breakfast. He reports complete resolution of his par esthesias muscle weakness. He reports that he is feeling well and is hopeful to be discharged home. Denies fever, chills, chest pain, palpitations, dyspnea, orthopnea, abdominal pain, nausea vomiting diarrhea. He has no other questions or concerns. No concerns per nursing. Reason For Visit: RHABDOMYOLYSIS Physical Exam Vital Signs: Temp Pulse Resp BP Pulse Ox 97.7 F 68 16 129/85 H 100 08/29/18 16:08 08/29/18 16:08 08/29/18 16:08 08/29/18 16:08 08/29/18 16:08 Intake & Output 08/28/18 08/29/18 08/30/18 06:59 06:59 06:59 Intake Total 1999 2592 1347 Output Total 3600 1200 Balance 1999 -1008 147 Weight 101.6 kg 101.6 kg General appearance: PRESENT: no acute distress, cooperative, obese, well- developed, well-nourished Head exam: PRESENT: atraumatic, normocephalic Eye exam: PRESENT: conjunctiva pink, EOMI, PERRLA. ABSENT: scleral icterus Ear exam: PRESENT: normal external ear exam Mouth exam: PRESENT: moist, tongue midline Neck exam: ABSENT: carotid bruit, JVD, lymphadenopathy, thyromegaly Respiratory exam: PRESENT: clear to auscultation ra, symmetrical, unlabored. ABSENT: rales, rhonchi, wheezes Cardiovascular exam: PRESENT: RRR, +S1, +S2. ABSENT: diastolic murmur, rubs, systolic murmur Pulses: PRESENT: normal dorsalis pedis pul Vascular exam: PRESENT: normal capillary refill GI/Abdominal exam: PRESENT: normal bowel sounds, soft. ABSENT: distended, guarding, mass, organolmegaly, rebound, tenderness Rectal exam: PRESENT: deferred Extremities exam: PRESENT: full ROM. ABSENT: calf tenderness, clubbing, pedal edema Neurological exam: PRESENT: alert, awake, oriented to person, oriented to place, oriented to time, oriented to situation, CN II-XII grossly intact. ABSENT: motor sensory deficit Psychiatric exam: PRESENT: appropriate affect, normal mood. ABSENT: homicidal ideation, suicidal ideation Skin exam: PRESENT: dry, intact, warm. ABSENT: cyanosis, rash Results Laboratory Results: 08/28/18 04:46 08/29/18 04:53 08/29/18 04:53 Sodium 137.7 Potassium 4.1 Chloride 107 Carbon Dioxide 25 Anion Gap 6 BUN 12 Creatinine 1.18 Est GFR ( Amer) > 60 Est GFR (Non-Af Amer) > 60 Glucose 80 Calcium 8.6 Total Bilirubin 0.3 AST 116 H ALT 54 Alkaline Phosphatase 50 Total Protein 6.3 Albumin 3.4 L 08/27/18 08/27/18 08/28/18 14:35 14:35 04:46 Creatine Kinase 8668 H 5882 H CK-MB (CK-2) 22.10 H Troponin I < 0.012 08/29/18 04:53 Creatine Kinase 3942 H CK-MB (CK-2) Troponin I Impressions: Chest X-Ray 08/27/18 16:20 IMPRESSION: NO ACUTE RADIOGRAPHIC FINDING IN THE CHEST. Head CT 08/27/18 16:20 IMPRESSION: NORMAL BRAIN CT WITHOUT CONTRAST. EVIDENCE OF ACUTE STROKE: NO. Head CTA 08/27/18 16:48 IMPRESSION: NO CTA EVIDENCE OF STENOSIS OR ANEURYSM OF THE [place]. Neck CTA 08/27/18 16:48 IMPRESSION: There is no stenosis or significant atherosclerosis of the extracranial carotid or vertebral arteries. The internal carotid arteries are tortuous. Assessment and Plan - Diagnosis (1) Rhabdomyolysis Qualifiers: Rhabdomyolysis type: non-traumatic Qualified Code(s): M62.82 - Rhabdomyolysis Is this a current diagnosis for this admission?: Yes Plan: Improved; CK trending down, Cr/BUN nml, LFTs improved Patient was admitted with creatinine of 1.36, creatinine kinase of 8000, mildly elevated LFTs. 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 May also be related to severe hypothyroidism Patient is admitted to the medical floor and continuous cardiac telemetry. Continue IV fluids. Encourage p.o. fluids. Monitor chemistries and CK in the morning. (2) Conjunctivitis Qualifiers: Conjunctivitis type: acute Acute conjunctivitis type: unspecified Later ality: bilateral Qualified Code(s): H10.33 - Unspecified acute conjunctivitis, bilateral Is this a current diagnosis for this admission?: Yes Plan: Improved with Erythromycin ointment; Day #3 (3) Hypothyroidism Qualifiers: Hypothyroidism type: unspecified Qualified Code(s): E03.9 - Hypothyroidism, unspecified Is this a current diagnosis for this admission?: Yes Plan: TSH 176, Free T4 <0.07 Start levothyroxine 150 mcg (1.6 mcg/kg/day) Recommend outpatient endocrinology follow up. (4) Hypertension Is this a current diagnosis for this admission?: Yes Plan: Improved w/ start of Losartan Patient endorses a history of hypertension; not on hypertensive medications. Start losartan 25 mg daily. Cardiac diet. (5) Paresthesias in left hand Is this a current diagnosis for this admission?: Yes Plan: Resolved per patient. Secondary to rhabdomyolysis and possibly hypothyroidism. Management as above. (6) Tobacco dependence Is this a current diagnosis for this admission?: Yes Plan: Smoking cessation is encouraged. Nicotine or placement therapies are provided. - Time Time Spent with patient: 15-24 minutes Medications reviewed and adjusted accordingly: Yes Anticipated discharge: Home Within: within 24 hours
[2018-08-30] MEDS: LEVOTHYROXINE SODIUM 0.15 MG TABLET PO SCH (06:14)
[2018-08-30] MEDS: HEPARIN SOD (PORCINE) 5,000 UNIT/ML 1 ML SYRINGE SUBCUT SCH (06:14)
[2018-08-30] MEDS: ERYTHROMYCIN 0.5% OPH OINTMENT 3.5 GM TUBE OU SCH (06:14)
[2018-08-30 06:44] LABS: ALANINE AMINOTRANSFERASE 57 U/L (21-72); ALBUMIN 3.8 g/dL (3.5-5.0); ALKALINE PHOSPHATASE 49 U/L (38-126); ASPARTATE AMINO TRANSFERASE 106 U/L (17-59); BILIRUBIN,DIRECT 0.2 mg/dL (0.0-0.4); BILIRUBIN,TOTAL 0.3 mg/dL (0.2-1.3); BLOOD UREA NITROGEN 11 mg/dL (7-20); CALCIUM 8.9 mg/dL (8.4-10.2); CARBON DIOXIDE 29 mmol/L (22-30); GLUCOSE 79 mg/dL (75-110); POTASSIUM 4.1 mmol/L (3.6-5.0); TOTAL PROTEIN 6.6 g/dL (6.3-8.2)
[2018-08-30 06:49] LABS: ANION GAP 5 (5-19); CHLORIDE 104 mmol/L (98-107)
[2018-08-30 06:53] LABS: CREATINE KINASE 2411 U/L (55-170)
[2018-08-30 07:56] VITALS: BP 122/77
[2018-08-30] MEDS: LOSARTAN POTASSIUM 25 MG TABLET PO SCH (10:45)
[2018-08-30] MEDS: DOCUSATE SODIUM 100 MG CAPSULE PO SCH (10:45)
[2018-08-30] MEDS: NICOTINE 21 MG/24 HR PATCH.TD24 TD SCH (10:45)
[2018-08-30] MEDS: FAMOTIDINE 20 MG TABLET PO SCH (10:46)
--- NOTE | 2018-08-31 14:46 | PDOC DISCHARGE SUMMARY ---
General - Admit/Disc Date/PCP Admission Date/Primary Care Provider: 08/27/18 18:50 Discharge Date: 08/30/18 - Discharge Diagnosis (1) Rhabdomyolysis Is this a current diagnosis for this admission?: Yes Summary: Improved; CK trending down, Cr/BUN nml, LFTs improved Patient was admitted with creatinine of 1.36, creatinine kinase of 8000, mildly elevated LFTs. 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 May also be related to severe hypothyroidism Patient was admitted to the medical floor and continuous cardiac telemetry. He was provided aggressive IVF resuscitation with improvement in his lab work. Patient symptoms (parasthesia and muscle cramps). He is discharged in stable condition. He is advised to drink plenty of fluids; avoid dehydration, exertion, and heat exposure. He is reminded of the importance of managing his hypothyroidism. Patient is instructed to [facility] and to return to the emergency department as needed for concerning symptoms. (2) Conjunctivitis Is this a current diagnosis for this admission?: Yes Summary: Improved with Erythromycin ointment; he is instructed to continue medication for 7 more days. (3) Hypothyroidism Is this a current diagnosis for this admission?: Yes Summary: TSH 176, Free T4 <0.07 Started levothyroxine 150 mcg (1.6 mcg/kg/day) Recommend he establish with local PCP; will need follow up labs in 6-8 weeks. He may also benefit from outpatient endocrinology follow up. (4) Hypertension Is this a current diagnosis for this admission?: Yes Summary: Improved w/ start of Losartan Patient endorses a history of hypertension; not on hypertensive medication Recommend dietary and lifestyle modifications. (5) Paresthesias in left hand Is this a current diagnosis for this admission?: Yes Summary: Resolved per patient. Secondary to rhabdomyolysis and possibly hypothyroidism. (6) Tobacco dependence Is this a current diagnosis for this admission?: Yes Summary: Smoking cessation is encouraged. Prescription for Nicoderm patches provided. - Additional Information Resuscitation Status: Full Code Discharge Diet: Regular Discharge Activity: Activity As Tolerated, Balance Activity w/Rest Prescriptions: Erythromycin Base [E-Mycin 0.5% Oph Ointment 3.5 gm] 1 applic OU Q6 7 Days #1 tube Levothyroxine Sodium [Synthroid 0.15 mg Tablet] 0.15 mg PO Q6AM #30 tablet Losartan Potassium [Cozaar 25 mg Tablet] 25 mg PO DAILY #30 tablet Nicotine [Nicoderm 21 mg/24 Hr Transderm Patch] 1 each TD DAILY #30 patch.td24 Home Medications: Acetaminophen [Tylenol 325 mg Tablet] 650 mg PO Q4HP PRN tablet 08/30/18 Docusate Sodium [Colace 100 mg Capsule] 100 mg PO DAILY capsule 08/30/18 Erythromycin Base [E-Mycin 0.5% Oph Ointment 3.5 gm] 1 applic OU Q6 7 Days #1 tube 08/30/18 Levothyroxine Sodium [Synthroid 0.15 mg Tablet] 0.15 mg PO Q6AM #30 tablet 08/30/18 Losartan Potassium [Cozaar 25 mg Tablet] 25 mg PO DAILY #30 tablet 08/30/18 Nicotine [Nicoderm 21 mg/24 Hr Transderm Patch] 1 each TD DAILY #30 patch.td24 08/30/18 History of Present Illness History of Present Illness: DEX GUERRA is a 38 year old male with a past medical history of hypertension and hypothyroidism, not currently on medications due to financial and insurance barriers, who presented to the emergency department today with a complaint of less than 30 minutes of hand numbness and tingling that has improved since his arrival. Evaluation in the emergency department revealed hypertension, mild anemia with a hemoglobin of 11.6, creatinine of 1.34 (unknown baseline), mildly elevated LFTs, creatinine kinase 8600 with an elevated CK-MB to 22.10, and TSH of 176. Head CT, head CTA, and neck CTA all benign; negative for acute CVA. He is referred to the hospitalist service for admission and management of the above-stated complaints and findings. Physical Exam Vital Signs: Temp Pulse Resp BP Pulse Ox 97.6 F 71 15 122/77 98 08/30/18 11:15 08/30/18 11:15 08/30/18 11:15 08/30/18 11:15 08/30/18 11:15 Intake & Output 08/30/18 08/31/18 09/01/18 06:59 06:59 06:59 Intake Total 2067 Output Total 4930 Balance -2733 Weight 101 kg General appearance: PRESENT: no acute distress, cooperative, obese, well- developed, well-nourished Head exam: PRESENT: atraumatic, normocephalic Eye exam: PRESENT: conjunctiva pink, EOMI, PERRLA. ABSENT: scleral icterus Ear exam: PRESENT: normal external ear exam Mouth exam: PRESENT: moist, tongue midline Neck exam: ABSENT: carotid bruit, JVD, lymphadenopathy, thyromegaly Respiratory exam: PRESENT: clear to auscultation ra. ABSENT: rales, rhonchi, wheezes Cardiovascular exam: PRESENT: RRR. ABSENT: diastolic murmur, rubs, systolic murmur Pulses: PRESENT: normal dorsalis pedis pul Vascular exam: PRESENT: normal capillary refill GI/Abdominal exam: PRESENT: normal bowel sounds, soft. ABSENT: distended, guarding, mass, organolmegaly, rebound, tenderness Rectal exam: PRESENT: deferred Extremities exam: PRESENT: full ROM. ABSENT: calf tenderness, clubbing, pedal edema Musculoskeletal exam: PRESENT: ambulatory Neurological exam: PRESENT: alert, awake, oriented to person, oriented to place, oriented to time, oriented to situation, CN II-XII grossly intact. ABSENT: motor sensory deficit Psychiatric exam: PRESENT: appropriate affect, normal mood. ABSENT: homicidal ideation, suicidal ideation Skin exam: PRESENT: dry, intact, warm. ABSENT: cyanosis, rash Results Laboratory Results: 08/28/18 04:46 08/30/18 05:30 08/27/18 08/27/18 08/28/18 14:35 14:35 04:46 Creatine Kinase 8668 H 5882 H CK-MB (CK-2) 22.10 H Troponin I < 0.012 08/29/18 08/30/18 04:53 05:30 Creatine Kinase 3942 H 2411 H CK-MB (CK-2) Troponin I Impressions: Chest X-Ray 08/27/18 16:20 IMPRESSION: NO ACUTE RADIOGRAPHIC FINDING IN THE CHEST. Head CT 08/27/18 16:20 IMPRESSION: NORMAL BRAIN CT WITHOUT CONTRAST. EVIDENCE OF ACUTE STROKE: NO. Head CTA 08/27/18 16:48 IMPRESSION: NO CTA EVIDENCE OF STENOSIS OR ANEURYSM OF THE [place] OF [place]. Neck CTA 08/27/18 16:48 IMPRESSION: There is no stenosis or significant atherosclerosis of the extracranial carotid or vertebral arteries. The internal carotid arteries are tortuous. Qualifiers - * PATIENT BEING DISCHARGED WITH ANY OF THE FOLLOWING DIAGNOSIS: No Acute Heart Failure - Is this a Heart Failure Patient?: No Plan Discharge Plan: [facility]-up with [facility] within 1 week to establish care. Patient was educated that it is extremely important that he continue to take your levothyroxine. Take other medications as prescribed. Eat a low-sodium diet. STOP smoking. Return to the emergency department as needed for concerning symptoms. Time Spent: Greater than 30 Minutes
== END 2018-08-30 12:00 | disposition home or self-care (01) | DRG 558 ==
LOC: ER 16:17 → EH 18:25 → INTOOBSV 18:25 → OBSVTOIN 18:50 → EH 19:20 → 4S 21:29
PROVIDERS: ADMIT Internal Medicine; ATTEND Internal Medicine
DX: M62.82 Rhabdomyolysis (principal); G83.24 Monoplegia of upper limb affecting left nondominant side; I10 Essential (primary) hypertension; E03.9 Hypothyroidism, unspecified; F17.210 Nicotine dependence, cigarettes, uncomplicated; D64.9 Anemia, unspecified; Z91.120 Patient's intentional underdosing of medication regimen due to financial hardship; E66.9 Obesity, unspecified; Z88.8 Allergy status to other drugs, medicaments and biological substances; Z91.030 Bee allergy status; H10.9 Unspecified conjunctivitis
CPT/HCPCS: 36415; 70450; 70496; 70498; 71045; 80053; 82550; 82553; 83036; 84439; 84443; 84484; 85025; 85027; 85610; 85730; 93005; 93010; J1644; J3490; J7030

== ENCOUNTER 2018-09-06 16:02 | Emergency (ER) | payer SELFPAY ==
[2018-09-06] MEDS ORDERED: ACETAMINOPHEN 325 MG TABLET PO ONE (19:05)
--- NOTE | 2018-09-06 19:50 | ER Document Report ---
HPI - HPI Patient complains to provider of: Right hand injury Time Seen by Provider: 09/06/18 19:05 Pain Level: 5 Context: Patient is a 38-year-old male presents to the emergency department for an injury to his right hand. Patient states he got angry this afternoon and punched a door. Patient is denying SI or HI. States sometimes he just gets angry and is unsure of how to release his anger. Patient's denying any further injuries or other pain. Past Medical History - General Information source: Patient - Social History Smoking Status: Unknown if Ever Smoked Family History: Reviewed & Not Pertinent - Past Medical History Cardiac Medical History: Reports: Hx Hypertension Endocrine Medical History: Reports: Hx Hypothyroidism Renal/ Medical History: Denies: Hx Peritoneal Dialysis Past Surgical History: Reports: Hx Appendectomy, Hx Orthopedic Surgery - B ankle Vertical Provider Document - CONSTITUTIONAL Agree With Documented VS: Yes Notes: GENERAL: Alert, interacts well. No acute distress. HEAD: Normocephalic, atraumatic. EYES: Pupils equal, round, and reactive to light. Extraocular movements intact. ENT: Oral mucosa moist, tongue midline. NECK: Full range of motion. Supple. Trachea midline. LUNGS: Clear to auscultation bilaterally, no wheezes, rales, or rhonchi. No respiratory distress. HEART: Regular rate and rhythm. No murmur ABDOMEN: Soft, non-tender. Non-distended. Bowel sounds present in all 4 quadrants. EXTREMITIES: Moves all 4 extremities spontaneously. normal radial and dorsalis pedis pulses bilaterally. Generalized swelling and tenderness noted to the dorsal aspect of the right hand, full range of motion right wrist, right elbow, right shoulder. Capillary refill less than 2 seconds distally all 5 fingers on the right hand. Radial, ulnar, medial nerves do appear intact. BACK: no cervical, thoracic, lumbar midline tenderness. No saddle anesthesia, normal distal neurovascular exam. NEUROLOGICAL: Alert and oriented x3. Normal speech. cranial nerves II through XII grossly intact PSYCH: Normal affect, normal mood. SKIN: Warm, dry, normal turgor. - INFECTION CONTROL TRAVEL OUTSIDE OF THE [place] IN LAST 30 DAYS: No Course - Re-evaluation Re-evalutation: 09/06/18 20:10 Hand X-Ray 09/06/18 19:05 IMPRESSION: No acute fracture or dislocation. Patient's imaging reveals no signs of acute fractures. Patient exhibits no sign of snuffbox tenderness. Most pain is located at the distal aspect of digit 4 and 5 on the right hand and anteriorly. Discussed use of Fco wrap continued use of Tylenol and Motrin. At this time will discharge with return precautions and follow-up recommendations. Verbal discharge instructions given a the bedside and opportunity for questions given. Medication warnings reviewed. Patient is in agreement with this plan and has verbalized understanding of return precautions and the need for primary care follow-up in the next 24-72 hours. This medical record was dictated with voice recognizing software. There may be grammatical, syntax errors that are unintended. - Vital Signs Vital signs: Temp Pulse Resp BP Pulse Ox 97.9 F 81 19 149/82 H 97 09/06/18 17:11 09/06/18 17:11 09/06/18 17:11 09/06/18 17:11 09/06/18 17:11 Discharge - Discharge Clinical Impression: Injury of right hand Qualifiers: Encounter type: initial encounter Qualified Code(s): S69.91XA - Unspecified injury of right wrist, hand and finger(s), initial encounter Condition: Stable Disposition: HOME, SELF-CARE Additional Instructions: As we discussed you have been seen and treated in the emergency department for an injury to your right hand. Your x-rays revealed no signs of broken bones. Please make sure you apply Fco wrap and ice to your hand as needed. Please also make sure you take [id number] Tylenol Motrin for generalized pain. Please follow-up with your primary care provider in the next 24 to 48 hours. Please return to the emergency room for any concerns. Referrals: [facility] [Provider Group] - Follow up as needed
--- NOTE | 2018-09-06 19:53 | RADIOLOGY REPORT (SQ) ---
EXAM DESCRIPTION: HAND RIGHT 3 VIEWS COMPLETED DATE/TIME: 09/06/2018 7:30 pm REASON FOR STUDY: punched a door COMPARISON: None. EXAM PARAMETERS: NUMBER OF VIEWS: Three views. TECHNIQUE: AP, lateral and oblique radiographic images acquired of the right hand. LIMITATIONS: None. FINDINGS: MINERALIZATION: Normal. BONES: No acute fracture or dislocation. No worrisome bone lesions. JOINTS: No effusion. SOFT TISSUES: No significant soft tissue swelling. No radiopaque foreign body. OTHER: No other significant finding. IMPRESSION: No acute fracture or dislocation. TECHNICAL DOCUMENTATION: JOB ID: [id number] [id number] 2010 [employer]- All Rights Reserved Reading location - IP/workstation name: [email or web address]
[2018-09-06 20:36] VITALS: BP 136/98
== END 2018-09-06 20:39 | disposition home or self-care (01) ==
LOC: ER 16:02
DX: S69.91XA Unspecified injury of right wrist, hand and finger(s), initial encounter (principal); W22.09XA Striking against other stationary object, initial encounter; I10 Essential (primary) hypertension
CPT/HCPCS: 99283